=== PATIENT | female | born 1985 | race Two or more races ===

== ENCOUNTER 2021-07-29 00:34 | Emergency (ER) | payer OTHER ==
[~2021-07-29] VITALS: Ht 162.6 cm; Wt 101.3 kg
[2021-07-29 01:12] LABS: BASOPHILS % (AUTO) 1 % (0-1); EOSINOPHILS % (AUTO) 1 % (1-7); LYMPHOCYTES % (AUTO) 27 % (22-44); MEAN CORPUSCULAR HEMOGLOBIN 30.8 pg (27.0-34.8); MEAN CORPUSCULAR HGB CONC 34.5 g/dL (32.4-35.8); MEAN PLATELET VOLUME 8.4 fL (7.4-10.4); MONOCYTES % (AUTO) 4 % (2-9); NEUTROPHILS % (AUTO) 68 % (42-75); PLATELET COUNT 325 x10^3/uL (130-400); RED CELL DISTRIBUTION WIDTH 12.6 % (9.6-15.2)
[2021-07-29 01:20] LABS: ALANINE AMINOTRANSFERASE 37 U/L (12-78); ALBUMIN 3.6 g/dL (3.4-5.0); ANION GAP 9 mmol/L (5-15); CALCIUM 9.1 mg/dL (8.5-10.1); CHLORIDE 102 mmol/L (98-107); CREATININE 0.84 mg/dL (0.55-1.02)
[2021-07-29 01:26] LABS: ALKALINE PHOSPHATASE 68 U/L (45-117); BILIRUBIN,TOTAL 0.5 mg/dL (0.2-1.0); TOTAL PROTEIN 7.7 g/dL (6.4-8.2)
[2021-07-29] MEDS ORDERED: MORPHINE SULFATE 4 MG/ML, 1ML IVPush PRN (03:00)
[2021-07-29] MEDS ORDERED: ONDANSETRON 2MG/ML, 2ML IVPush ONE (03:00)
[2021-07-29] MEDS ORDERED: MORPHINE SULFATE 4 MG/ML, 1ML ONE (03:04)
[2021-07-29] MEDS ORDERED: ONDANSETRON 2MG/ML, 2ML ONE (03:04)
[2021-07-29 03:11] LABS: MICROSCOPIC AUTO
[2021-07-29 03:32] LABS: TROPONIN I < 0.015 ng/mL (0.000-0.045)
--- NOTE | 2021-07-29 03:56 | NUR ---
pt resting in bed, vss, states she feels better, awaiting US results
[2021-07-29 04:57] VITALS: BP 103/60
== END 2021-07-29 05:42 | disposition home or self-care (01) ==
LOC: ED 05:27
DX: K29.00 Acute gastritis without bleeding (principal)
CPT/HCPCS: 36415; 71045; 76700; 80053; 81001; 83690; 84484; 85025; 93005; 96374; 96375; 99285; J2270; J2405